=== PATIENT | female | born 1985 | race Caucasian/White ===

== ENCOUNTER 2024-05-08 13:37 | Outpatient (AMB) | payer OTHER, SELFPAY ==
--- NOTE | 2024-05-08 13:39 | A.OFFPC_ITS ---
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: No Allergies No Known Allergies [No Known Allergies*] Allergy (Verified 05/08/24 13:40) Medication List - Last Reconciled 05/08/24 by Kristen Villalta PA-C albuterol sulfate 90 mcg/actuation 2 puffs inhalation Q6H Tobacco use date assessed: 05/08/24 Dental Screening Dental Screen Date: 05/08/24 Did you have a dental visit in the last 12 months?: Yes Did you have a dental problem in the last 6 months where you did not have access to dental care?: No Was dental information given to patient?: Patient has dentist HPI Physical HPI Details Patient is a 38-year-old female with a significant past medical history of asthma, tricuspid valve disease presenting today for a physical exam. No acute concerns today. CV: Blood pressure today is 104/68. Her last echo was over 3 years ago and supposed to be monitored every 3-5 years. No swelling, chest pain or shortness on breath. PULM: Asthma is well-controlled. rarely needs albuterol. Overall feeling well. She is physically active without any difficulty. 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 1. Little interest or pleasure in doing things: not at all 2. Feeling down, depressed, or hopeless: not at all 3. Trouble falling or staying asleep, or sleeping too much: not at all 4. Feeling tired or having little energy: not at all 5. Poor appetite or overeating: not at all 6. Feeling bad about yourself - or that you are a failure or have let yourself or your family down: not at all 7. Trouble concentrating on things, such as reading the newspaper or watching television: not at all 8. Moving or speaking so slowly that other people could have noticed. Or the opposite - being so fidgety or restless that you have been moving around a lot more than usual: not at all 9. Thoughts that you would be better off or of hurting yourself in some way: not at all Total score: 0 Depression Screening Interpretation: Negative Depression Screening Done: Yes 81481 - PHQ-9 Billing: Yes Source: Developed by Drs. Errol Arechiga, Betty Carcamo, Byron Weems and colleagues, with an educational greg from [employer]. Thrive Questionnaire Date Thrive assessed: 05/08/24 I am a: Patient What is your living situation today?: I have a steady place to live Within the past 12 months, did the food you bought not last and you didn't have the money to get more?: Never true Within the past 12 months, did you worry whether your food would run out before you got money to buy more?: Never true Do you have trouble paying for medicines?: No Do you have trouble getting transportation to medical appointments?: No Do you have trouble paying your heating and electricity bill?: No Do you have trouble taking care of your child, family member or friend?: No Do you have trouble with day-to-day activities such as bathing, preparing meals, shopping, managing finances, etc.?: No Are you currently unemployed and looking for a job?: No Are you interested in more education?: No Please select the resources that you would like help with: None Currently or been in a relationship where the following occur: No concerns reported THRIVE Score: 0 AUDIT C Alcohol Use Questionnaire (AUDIT-C) 1. How often do you have a drink containing alcohol?: Monthly or less 2. How many drinks containing alcohol do you have on a typical day when you are drinking?: 1 or 2 3. How often do you have six or more drinks on one occasion?: Never Total Score: 1 Score Reviewed/Action Taken: No GURPREET-7 AMB Questionnaire GURPREET-7 Date GURPREET - 7 assessed: 05/08/24 Feeling nervous, anxious, or on edge: 0 = Not at all Not being able to stop or control worryin = Not at all Worrying too much about different things: 0 = Not at all Trouble relaxin = Not at all Being so restless that it is hard to sit still: 0 = Not at all Becoming easily annoyed or irritable: 0 = Not at all Feeling afraid as if something awful might happen: 0 = Not at all Total GURPREET-7 score (0-4 normal; 5-9 mild; 10-14 moderate; 15-21 severe): 0 Source: Developed by Drs. Errol Arechiga, Betty Carcamo, Byron Weems and colleagues, with an educational greg from [employer]. GURPREET-7 Assessment Billing GURPREET-7 Assessment Tool: GURPREET-7 Assessment 04339 Physical exam (Primary Care) Vital Signs: Last Vital Signs Pulse 67 05/08/24 13:43 Resp 12 05/08/24 13:43 BP 104/68 05/08/24 13:43 Pulse Ox 98 05/08/24 13:43 Oxygen Delivery Method Room Air 05/08/24 13:43 BMI result Body Mass Index 23.7 Tobacco/Smoking Status: Tobacco use Status Tobacco use date assessed 05/08/24 05/08/24 13:48 Patient Tobacco Use Status Never used Tobacco 05/08/24 13:48 e-Cigarette/Vaping Use Never Used 05/08/24 13:48 PHQ-9: PHQ-9 Score PHQ-9: Total score 0 05/08/24 13:48 Depression Screening Interpretation: Negative Thrive Assessment: Date of Thrive Assessment Date Thrive assessed 05/08/24 05/08/24 13:48 Currently or been in a relationship where the following occur: No concerns reported Const Orientation/consciousness: patient oriented x3 HENMT Ears: hearing grossly normal bilaterally and TM's normal bilaterally General nose exam: No nasal polyps present Face and sinus: Yes sinuses nontender Mouth: Normal oral and palatal mucosa present Eyes Pupils: Equal, round and reactive pupils present EOM: EOMs intact bilaterally Neck Neck: Yes full ROM and Yes no lymphadenopathy Thyroid: Thyroid normal Chest Chest palpation & inspection: normal inspection of the chest Resp Auscultation: clear to auscultation bilaterally Cardio Rate: regular rate Rhythm: regular rhythm Heart sounds: S1 normal heart sound present, S2 normal heart sound present and M urmur heart sound present Peripheral pulses: Peripheral pulses 2+ throughout GI Other: Soft, nontender Auscultation: normal bowel sounds Rectal Exam - Female: deferred General: Yes no CVA tenderness Back/Spine/Pelvis Other: Nontender Back: no CVA tenderness Skin General skin exam: no rashes or lesions noted Neuro General: patient oriented x3, gait normal, CN's II-XI intact bilaterally and deep tendon reflexes 2+ bilaterally Cranial nerves: Yes Equal, round and reactive pupils present Motor exam (neuro): 5/5 motor strength present throughout Sensory Exam: double simultaneous stimulation for sensation normal Coordination: [id number] test normal and Romberg test negative Extrem General: Yes normal to inspection and Yes full ROM Psych Affect: normal affect Attitude: cooperative Thought process: Normal thought process present Thought content: Normal thought content present Insight: Good insight present (Psych) Judgement: Good judgement present (Psych) Assessment and Plan Assessment & Plan (1) Routine general medical examination at a health care facility: Code(s): Z00.00 - Encounter for general adult medical examination without abnormal findings Plan: Health maintenance reviewed. Labs ordered. We will follow up pending test results (2) Tricuspid valve disease: Code(s): I07.9 - Rheumatic tricuspid valve disease, unspecified Plan: Echo ordered (3) Murmur: Code(s): R01.1 - Cardiac murmur, unspecified Plan: As above Orders: Orders Complete Blood Count Auto Diff Today Z00.00 - Encounter for general adult medical examination without abnormal findings, Z13.220 - Encounter for screening for lipoid disorders Comprehensive [place]. Panel Fast Today Z00.00 - Encounter for general adult medical examination without abnormal findings, Z13.220 - Encounter for screening for lipoid disorders Lipid Panel Today Z00.00 - Encounter for general adult medical examination without abnormal findings, Z13.220 - Encounter for screening for lipoid disorders CA echo transthoracic complete Today I07.9 - Rheumatic tricuspid valve disease, unspecified, R01.1 - Cardiac murmur, unspecified TSH reflex Free T4 Today Z00.00 - Encounter for general adult medical examination without abnormal findings, Z13.220 - Encounter for screening for lipoid disorders Referrals Dermatology Referral Z12.83 - Encounter for screening for malignant neoplasm of skin Coding Level of Care Code Est Pt Prev Care 18-39y(41675) Diagnoses Routine general medical examination at a health care facility Z00.00 Tricuspid valve disease I07.9 Murmur R01.1 Additional Codes GURPREET-7 Assessment Billing - GURPREET-7 Assessment Tool: GURPREET-7 Assessment 96645 ([id number])
[2024-05-08 13:43] VITALS: BP 104/68; PULSE 67; RESP 12; O2SAT 98; BMI 23.7
== END 2024-05-08 14:51 | disposition home or self-care (01) ==
LOC: HO.HMGFM 13:37
PROVIDERS: PCP Internal Medicine; Visit Provider Physician Assistant
DX: Z00.00 Encounter for general adult medical examination without abnormal findings (principal); I07.9 Rheumatic tricuspid valve disease, unspecified; R01.1 Cardiac murmur, unspecified
CPT/HCPCS: 99395

== ENCOUNTER → 2024-06-05 12:56 | Outpatient (REF) | payer OTHER, SELFPAY ==
--- NOTE | 2024-06-05 12:59 | CA_ITS ---
Transthoracic Echocardiogram Patient (Last, First, Middle): Zayda Oneill, Gender: Female Date of : 1985 Age: 38 Procedure Date: 06/05/2024 Procedure Type: Transthoracic Echocardiogram Location: OP Height: 160.02 cm Weight: 60.78 kg BSA: 1.63 m2 Heart Rate: bpm BP: 110 / 72 mmHg Hot Molder: TO Referring MD: Kristen Villalta PA-C Transcription Typist: Adolfo Murray MD Symptoms: I07.9 - Rheumatic tricuspid valve disease, unspecified Study Quality: Adequate ECG Rhythm: Sinus Conclusions: - Essentially normal study Findings Left Ventricle Normal left ventricular size, thickness, and systolic function. The visually estimated ejection fraction is between 65-70%. Diastolic function is normal for age. Right Ventricle Normal right ventricular cavity size and systolic function. Atria Both atria are normal in size. There is no evidence of interatrial shunt. Aortic Valve Normal aortic valve structure and function. There is no aortic valve stenosis. There is no aortic valve regurgitation. Mitral Valve Normal mitral valve structure and function. There is trace mitral valve regurgitation. There is no mitral valve stenosis. Pulmonic Valve The pulmonic valve is likely normal. There is trace pulmonic valve regurgitation. Tricuspid Valve Normal tricuspid valve structure. There is trace tricuspid valve regurgitation. The right ventricular systolic pressure is normal. The right ventricular systolic pressure is 24 mmHg. Normal right atrial pressure. There is no evidence of pulmonary hypertension. Great Vessels All visible segments of the aorta are normal in size. The visualized portions of the pulmonary artery and branches are normal. Venous The inferior vena cava is normal in size and collapses greater than 50% with inspiration. Pericardium/Pleural There is no evidence of pericardial effusion. Prior Study Comparison No prior study available for comparison. Measurements 2D Linear Measurements IVSd: 0.84 0.6-0.9/0.6-1.0 cm LVIDd: 4.32 3.9-5.3/4.2-5.9 cm LVIDd Index: 2.65 2.4-3.2/2.2-3.1 cm/m2 LVIDs: 2.99 2.0-3.6 cm LVPWd: 0.66 0.7-1.1 cm LA Diam: 3.20 2.7-3.8/3.0-4.0 cm LAIDs Index: 1.96 1.5-2.3 cm/m2 LV Mass: 121.18 67-162/88-224 g LV Mass Index: 74.34 43-95/49-115 g/m2 LVOT Diam: 2.00 3.0+(-)1.3 cm 2D Systolic Function EF 4C: 64.80 >55% EF 2C: 66.20 >55% EF BiP: 66.10 >55% Mitral Valve MV Pk E: 0.88 MV PK A: 0.44 MV Decel Time: 132.00 E/A: 2.00 E'Lateral: 16.20 E'Medial: 12.80 E/E' Med: 6.90 E/E' Lat: 5.50 PHT: 39.00 MVA PHT: 5.64 Decel [place]: 6.71 Aortic Valve AoV Pk Juan: 1.61 AoV Mn Juan: 1.04 AoV VTI: 0.34 AoV Pk Grad: 10.00 Aov Mn Grad: 5.00 NEMESIO Cont.VTI: 2.10 LVOT LVOT Pk Juan: 1.04 LVOT Mn Juan: 0.69 LVOT VTI: 0.23 LVOT Pk Grad: 4.00 LVOT Mn Grad: 2.00 LVOT Diam: 2.00 LVOT Area: 3.14 Diastolic Function MV Pk E: 0.88 MV Pk A: 0.44 E/A: 2.00 E'Medial: 12.80 E/E' Med: 6.90 E' Laterial: 16.20 E/E' Lat: 5.50 Right Ventricle TAPSE (mm): 31.10 TVS' Juan: 16.10 Tricuspid Valve TR Pk Juan: 2.29 TR Pk Grad: 21.00 RA Press: 3.00 RVSP: 24.00 Great Vessels Aorta Sinus of Valsalva: 2.69 2.0-3.5 cm Ao Asc: 2.60 2.1-3.4 cm Ao Arch: 2.60 Updated in Other Vendor System with Status of Final Adolfo Murray MD electronically signed on 06/06/2024 9:13:15 AM with status of Final
== END ==
LOC: HO.CARD 12:56
PROVIDERS: PCP Physician Assistant; Visit Provider Physician Assistant
DX: R01.1 Cardiac murmur, unspecified (principal); I07.9 Rheumatic tricuspid valve disease, unspecified
CPT/HCPCS: 93306

== ENCOUNTER → 2024-06-05 12:59 | Outpatient (BNV) | payer OTHER, SELFPAY | PROVIDERS: PCP Physician Assistant; Visit Provider Internal Medicine Cardiovascular Disease | DX: I07.9 Rheumatic tricuspid valve disease, unspecified (principal) | CPT/HCPCS: 93306 ==

== ENCOUNTER 2025-05-22 12:51 | Outpatient (AMB) | payer OTHER, SELFPAY ==
--- NOTE | 2025-05-22 12:59 | MHC.PC.OV ---
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: No Allergies No Known Allergies (No Known Allergies*) Allergy (Verified 05/08/24 13:40) Medication List - Last Reconciled 05/22/25 by Kristen Villalta PA-C albuterol sulfate 90 mcg/actuation 2 puffs inhalation Q6H clindamycin phosphate 1% (Clindagel) 1 appl topical DAILY metronidazole 500 mg PO Q8H 14 days montelukast (Singulair) 10 mg PO BEDTIME prednisone 40 mg (2 x 20 mg) PO DAILY Tobacco use date assessed: 05/22/25 Dental Screening Dental Screen Date: 05/22/25 Did you have a dental visit in the last 12 months?: Yes Did you have a dental problem in the last 6 months where you did not have access to dental care?: No Was dental information given to patient?: Patient has dentist HPI cpe HPI Details Patient is a 39-year-old female with a significant past medical history of asthma, tricuspid valve disease presenting today for a physical exam. No acute concerns today. CV: Blood pressure today is 98/56. Her last echo was one year ago and supposed to be monitored every 3-5 years. No swelling, chest pain or shortness on breath. PULM: Asthma is well-controlled. rarely needs albuterol. Overall feeling well. She is physically active without any difficulty. 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 1. Little interest or pleasure in doing things: not at all 2. Feeling down, depressed, or hopeless: not at all 3. Trouble falling or staying asleep, or sleeping too much: not at all 4. Feeling tired or having little energy: not at all 5. Poor appetite or overeating: not at all 6. Feeling bad about yourself - or that you are a failure or have let yourself or your family down: not at all 7. Trouble concentrating on things, such as reading the newspaper or watching television: not at all 8. Moving or speaking so slowly that other people could have noticed. Or the opposite - being so fidgety or restless that you have been moving around a lot more than usual: not at all 9. Thoughts that you would be better off or of hurting yourself in some way: not at all Total score: 0 Depression Screening Interpretation: Negative Depression Screening Done: Yes 41586 - PHQ-9 Billing: Yes Source: Developed by Drs. Errol Arechiga, Betty Carcamo, Byron Weems and colleagues, with an educational greg from [employer]. Thrive Questionnaire Date Thrive assessed: 05/22/25 I am a: Patient What is your living situation today?: I have a steady place to live Within the past 12 months, did the food you bought not last and you didn't have the money to get more?: Never true Within the past 12 months, did you worry whether your food would run out before you got money to buy more?: Never true Do you have trouble paying for medicines?: No Do you have trouble getting transportation to medical appointments?: No Do you have trouble paying your heating and electricity bill?: No Do you have trouble taking care of your child, family member or friend?: No Do you have trouble with day-to-day activities such as bathing, preparing meals, shopping, managing finances, etc.?: No Are you currently unemployed and looking for a job?: No Are you interested in more education?: No Please select the resources that you would like help with: None Currently or been in a relationship where the following occur: No concerns reported THRIVE Score: 0 AUDIT C Alcohol Use Questionnaire (AUDIT-C) 1. How often do you have a drink containing alcohol?: 2-3 times a week 2. How many drinks containing alcohol do you have on a typical day when you are drinking?: 1 or 2 3. How often do you have six or more drinks on one occasion?: Never Total Score: 3 GURPREET-7 AMB Questionnaire GURPREET-7 Date GURPREET - 7 assessed: 05/22/25 Feeling nervous, anxious, or on edge: 0 = Not at all Not being able to stop or control worryin = Not at all Worrying too much about different things: 0 = Not at all Trouble relaxin = Not at all Being so restless that it is hard to sit still: 0 = Not at all Becoming easily annoyed or irritable: 0 = Not at all Feeling afraid as if something awful might happen: 0 = Not at all Total GURPREET-7 score (0-4 normal; 5-9 mild; 10-14 moderate; 15-21 severe): 0 Source: Developed by Drs. Errol Arechiga, Betty Carcamo, Byron Weems and colleagues, with an educational greg from [employer]. GURPREET-7 Assessment Billing GURPREET-7 Assessment Tool: GURPREET-7 Assessment 30376 Physical exam (Primary Care) Vital Signs: Last Vital Signs Pulse 67 05/22/25 13:03 BP 98/56 L 05/22/25 13:03 Pulse Ox 100 05/22/25 13:03 Oxygen Delivery Method Room Air 05/22/25 13:03 Tobacco/Smoking Status: Tobacco use Status Tobacco use date assessed 05/22/25 05/22/25 13:06 Patient Tobacco Use Status Never used Tobacco 05/22/25 13:01 e-Cigarette/Vaping Use Never Used 05/22/25 13:01 PHQ-9: PHQ-9 Score PHQ-9: Total score 0 05/22/25 13:05 Depression Screening Interpretation: Negative Thrive Assessment: Date of Thrive Assessment Date Thrive assessed 05/22/25 05/22/25 13:05 Currently or been in a relationship where the following occur: No concerns reported Const Orientation/consciousness: patient oriented x3 HENMT Ears: hearing grossly normal bilaterally and TM's normal bilaterally General nose exam: No nasal polyps present Face and sinus: Yes sinuses nontender Mouth: Normal oral and palatal mucosa present Eyes Pupils: Equal, round and reactive pupils present EOM: EOMs intact bilaterally Neck Neck: Yes full ROM and Yes no lymphadenopathy Thyroid: Thyroid normal Chest Chest palpation & inspection: normal inspection of the chest Resp Auscultation: clear to auscultation bilaterally Cardio Rate: regular rate Rhythm: regular rhythm Heart sounds: S1 normal heart sound present and S2 normal heart sound present Peripheral pulses: Peripheral pulses 2+ throughout GI Other: Soft, nontender Auscultation: normal bowel sounds Rectal Exam - Female: deferred General: Yes no CVA tenderness Back/Spine/Pelvis Other: Nontender Back: no CVA tenderness Skin General skin exam: no rashes or lesions noted Neuro General: patient oriented x3, gait normal, CN's II-XI intact bilaterally and deep tendon reflexes 2+ bilaterally Cranial nerves: Yes Equal, round and reactive pupils present Motor exam (neuro): 5/5 motor strength present throughout Sensory Exam: double simultaneous stimulation for sensation normal Coordination: [id number] test normal and Romberg test negative Extrem General: Yes normal to inspection and Yes full ROM Psych Affect: normal affect Attitude: cooperative Thought process: Normal thought process present Thought content: Normal thought content present Insight: Good insight present (Psych) Judgement: Good judgement present (Psych) Coding Level of Care Code Est Pt Prev Care 18-39y(13285) Diagnoses Encounter for routine history and physical examination Z00.00 Additional Codes GURPREET-7 Assessment Billing - GURPREET-7 Assessment Tool: GURPREET-7 Assessment 79463 ([id number]) PHQ-9 - 63136 - PHQ-9 Billing: Yes ([id number]) Assessment & Plan Assessment & Plan (1) Encounter for routine history and physical examination: Code(s): Z00.00 - Encounter for general adult medical examination without abnormal findings Plan: reviewed labs ordered Medications: New metronidazole 500 mg PO Q8H 42 tabs 0RF 14 days Refilled montelukast (Singulair) 10 mg PO BEDTIME 90 tabs 2RF Discontinued amoxicillin Discontinued Reason: Doctor's Order 875 mg PO BID 20 tabs 0RF polymyxin B sulf-trimethoprim 10,000 unit- 1 mg/mL Discontinued Reason: Doctor's Order 1 drp ophthalmic (eye) QID 5 days 10 mL 3RF
[2025-05-22 13:03] VITALS: BP 98/56; PULSE 67; O2SAT 100; BMI 23.9
== END 2025-05-22 17:05 ==
LOC: HO.HMCFM 12:51
PROVIDERS: PCP Physician Assistant; Visit Provider Physician Assistant
DX: Z00.00 Encounter for general adult medical examination without abnormal findings (principal); Z23 Encounter for immunization

== ENCOUNTER → 2025-05-22 12:51 | Outpatient (BNVA) | payer OTHER, SELFPAY | PROVIDERS: PCP Physician Assistant; Visit Provider Physician Assistant | DX: Z00.00 Encounter for general adult medical examination without abnormal findings (principal); Z23 Encounter for immunization; J45.909 Unspecified asthma, uncomplicated; Z13.31 Encounter for screening for depression; Z13.39 Encounter for screening examination for other mental health and behavioral disorders | CPT/HCPCS: 90471; 90656; 96127 ==